=== PATIENT | female | born 1965 | race Caucasian/White ===

== ENCOUNTER 2024-02-12 08:42 | Outpatient (CLI) | payer BC, SELFPAY ==
--- NOTE | 2024-02-12 09:07 | MR_ITS ---
WS: [id number] EXAMINATION: MR hip LT wo con* [id number] ORDER DATE: 02/12/2024 9:32 AM HISTORY: Lt hip muscle strain CONTRAST: None. TECHNIQUE: Coronal STIR of the Pelvis. Coronal proton density, coronal T1, axial T2 fat sat, axial T1 , sagittal T2 fat sat, and sagittal T1 performed of the hip. FINDINGS: Gadolinium not administered. Erosive osteolytic soft tissue lesion involving the proximal LEFT femoral shaft medially measuring ap proximately 6.3 x 2.3 cm. Obvious cortical destruction of the medial femoral cortex. Extraosseous ext ension into the adjacent soft tissues. Soft tissue lesion extends into the lesser trochanter. Adjacen t surrounding edema along the medial femoral shaft. Small amount of fluid and edema extends into the adjacent neurovascular bundle. Extraosseous extension to the adjacent femoral musculature. Soft tissu e mass extends medially to involve the iliopsoas muscle and tendon. LEFT and RIGHT femoral head are n ormal in appearance. No other visualized bony lesions. Sigmoid diverticulosis. No visualized LEFT inguinal lymphadenopathy. Normal bone marrow signal in the bony pelvis and sacrum. MR/MR hip LT wo con* [id number] IMPRESSION: 1. Destructive soft tissue mass involving the LEFT proximal femur described ab ove with extraosseous soft tissue extension. Findings suspicious for metastatic disease in a patient this age. Additional considerations include primary bone neoplasm, lymphoma, and less likely osteomyelitis. 2. Recommend further evaluation with bone scan and/or PET/CT. Also consider co ntrast-enhanced CT chest abdomen and pelvis to assess for additional lesions th at are more amenable to percutaneous biopsy for tissue sampling. 3. Patient at risk for pathologic fracture of the LEFT femur. 4. Bony lesion involves the majority of the LEFT femoral shaft below the lesse r trochanter extending inferiorly approximately 6.3 cm
== END 2024-02-12 08:43 | disposition home or self-care (01) ==
PROVIDERS: PCP Family Medicine; Visit Provider Family Medicine
DX: S76.012A Strain of muscle, fascia and tendon of left hip, initial encounter (principal); X58.XXXA Exposure to other specified factors, initial encounter; M89.562 Osteolysis, left lower leg
CPT/HCPCS: 73721

== ENCOUNTER 2024-03-01 12:20 | Outpatient (CLI) | payer BC, SELFPAY ==
--- NOTE | 2024-03-01 12:24 | PETR_ITS ---
PROCEDURE INFORMATION: Exam: PET/CT Whole Body Exam date and time: 03/01/2024 1:01 PM Age: 59 years old Clinical indication: Symptoms: Lower ext mass. Destructive soft tissue mass involving the left proximal femur LABS AND CLINICAL REPORTS: Glucose: 97 mg/dl Treatment strategy for malignancy (PET staging): Initial Staging (PI) TECHNIQUE: Imaging protocol: Following at least four-hour fasting and following the injection of radiopharmaceutical, low dose CT images were obtained. Then, PET images were obtained. Attenuation corrected images were constructed using the CT scan. Fused images of PET and CT were reviewed. The standardized uptake values (SUV) reported below are maximum values within a region of interest, expressed in gm/ml. Exam includes the whole body. Radiopharmaceutical: 17.95 mCi F-18 FDG (Fluorodeoxyglucose), IV. Time of imaging post radiopharmaceutical administration: 1 hour Injection site: left AC COMPARISON: MR hip LT wo con* [id number] 02/12/2024 9:15 AM FINDINGS: Brain: Visualized brain has normal physiologic uptake. Pharynx: No abnormal uptake. Larynx: No abnormal uptake. Lungs, pleura and trachea: Calcified granuloma in the right lung. Heart: Normal physiologic uptake. Mediastinal space: No abnormal uptake. Liver: No abnormal uptake. Gallbladder and biliary ducts: No abnormal uptake. Pancreas: No abnormal uptake. Spleen: No abnormal uptake. Adrenal glands: No abnormal uptake. Kidneys and ureters: Normal physiologic uptake. Stomach and bowel: No abnormal uptake. Vasculature: No abnormal uptake. Lymph nodes: Mildly hypermetabolic 1.3 cm right supraclavicular lymph node has SUV max 2.2. Mildly hypermetabolic 1.2 cm right axillary lymph node has SUV max 1.4. Calcified mediastinal and hilar lymph nodes. Skeleton: Hypermetabolic destructive mass within the proximal left femur has SUV max 6.3. Soft tissues: Hypermetabolic 2.3 x 3.2 cm right breast mass has SUV max 4.4. PET/PET WB melanoma INITIAL [id number] IMPRESSION: 1. Hypermetabolic right breast mass with mildly hypermetabolic right axillary and right supraclavicular lymph nodes is concerning for a primary neoplasm. 2. Redemonstrated hypermetabolic destructive mass involving the proximal left femur, likely reflecting a metastasis.
== END 2024-03-01 12:21 | disposition home or self-care (01) ==
PROVIDERS: PCP Family Medicine; Visit Provider Family Medicine
DX: R22.42 Localized swelling, mass and lump, left lower limb (principal); J84.10 Pulmonary fibrosis, unspecified; I89.8 Other specified noninfective disorders of lymphatic vessels and lymph nodes; N63.10 Unspecified lump in the right breast, unspecified quadrant
CPT/HCPCS: 78816; A9552

== ENCOUNTER 2024-05-13 17:14 | Emergency (ER) | payer BC, SELFPAY ==
[2024-05-13 17:17] VITALS: BP 158/97; PULSE 89; RESP 18; TEMP 36.8; O2SAT 100; BMI 31.9
--- NOTE | 2024-05-13 17:34 | CTR_ITS ---
PROCEDURE INFORMATION: Exam: CT Head Without Contrast Exam date and time: 05/13/2024 7:17 PM Age: 59 years old Clinical indication: Altered mental status/memory loss; Patient HX: Lethargy with n/v. History of metastatic breast cancer. ; Additional info: Nausea and vomiting, likely metastatic breast cancer TECHNIQUE: Imaging protocol: Computed tomography of the head without contrast. Radiation optimization: All CT scans at this facility use at least one of these dose optimization techniques: automated exposure control; mA and/or kV adjustment per patient size (includes targeted exams where dose is matched to clinical indication); or iterative reconstruction. COMPARISON: PT PET WB melanoma INITIAL [id number] 03/01/2024 1:01 PM RADIATION DOSE METRICS: Total DLP (mGy-cm): 1019.98 FINDINGS: Brain: Normal. No hemorrhage. Unremarkable white matter. No mass effect. Cerebral ventricles: No ventriculomegaly. Paranasal sinuses: Visualized sinuses are unremarkable. No fluid levels. Mastoid air cells: Visualized mastoid air cells are well aerated. Bones: Unremarkable. No acute fracture. Soft tissues: Unremarkable. CT/CT head wo con* [id number] IMPRESSION: No acute intracranial abnormality.
--- NOTE | 2024-05-13 17:34 | CTR_ITS ---
PROCEDURE INFORMATION: Exam: CT Abdomen And Pelvis With Contrast Exam date and time: 05/13/2024 7:20 PM Age: 59 years old Clinical indication: Nausea and vomiting; Abdominal pain; Localized; Prior surgery; Surgery date: 6+ months; Surgery type: Full hysterectomy; Patient HX: C/O upper abd pain with n/v. History of breast cancer with metastatic lesion to left hip. ; Additional info: Nausea and vomiting, likely metastatic breast cancer TECHNIQUE: Imaging protocol: Computed tomography of the abdomen and pelvis with contrast. Radiation optimization: All CT scans at this facility use at least one of these dose optimization techniques: automated exposure control; mA and/or kV adjustment per patient size (includes targeted exams where dose is matched to clinical indication); or iterative reconstruction. Contrast material: OMNI 350; Contrast volume: 100 ml; Contrast route: INTRAVENOUS (IV); COMPARISON: PT PET WB melanoma INITIAL [id number] 03/01/2024 1:01 PM RADIATION DOSE METRICS: Total DLP (mGy-cm): 777.28 FINDINGS: Lungs: There are minor atelectatic changes at the lung bases. Liver: Liver is not significantly enlarged. There is mild diffuse fatty infiltration. No masses detected. Gallbladder and biliary ducts: Normal. No calcified stones. No ductal dilation. Pancreas: Unremarkable. Main pancreatic duct is not significantly dilated. Spleen: Normal. No splenomegaly. Adrenal glands: Normal. No mass. Kidneys and ureters: Small renal cortical and peripelvic cysts both kidneys likely benign otherwise kidneys are unremarkable. Stomach and bowel: Scattered diverticuli large bowel without evidence of diverticulitis. Appendix: No evidence of acute appendicitis. Intraperitoneal space: Unremarkable. No free air. No significant fluid collection. Vasculature: Unremarkable. No abdominal aortic aneurysm. Lymph nodes: Unremarkable. No enlarged lymph nodes. Urinary bladder: Unremarkabl gallbladder mildly contracted limiting assessment. Reproductive: Uterus has been removed. Bones/joints: There is an osteolytic bone lesion just below the lesser trochanter partially visualized consistent with history of bone metastasis from breast cancer. No other suspicious bone lesions appreciated. Soft tissues: Unremarkable CT/CT abdomen pelvis w con* [id number] IMPRESSION: 1. No acute findings within the abdomen or pelvis. 2. Bone metastasis left proximal femur.
--- NOTE | 2024-05-13 17:35 | ED_ITS ---
HPI - Nausea/Vomiting/Diarrhea 2 General: Chief complaint: Nausea/Vomiting/Diarrhea Stated complaint: n/v, hx cancer Time Seen by Provider: 05/13/24 17:19 Source: patient and family History of Present Illness: Patient is a nontoxic 59-year-old female who has a history of recent diagnosis of what is likely a metastatic breast cancer with left hip metastasis however has not had an actual biopsy to confirm this diagnosis and has not been able to get into any kind of treatment for this illness. She has had some nausea for quite some time however her home medication typically resolves her nausea symptoms. She has been having some increased nausea since last night that has not been resolved with home medications. She presents to the ER for evaluation of the same. She denies any current pain or discomfort. MD elicited complaint: nausea and vomiting Associated nausea: Yes Associated symtoms: Reports nausea; Denies chest pain, diaphoresis or headache(s) Related Data Home Medications Medication Instructions Recorded Confirmed cholecalciferol (vitamin D3) 25 25 mcg PO DAILY 02/25/24 02/25/24 mcg (1,000 unit) capsule cyanocobalamin (vitamin B-12) 200 mcg PO DAILY 02/25/24 02/25/24 1,000 mcg/15 mL oral liquid hydrocodone 5 mg-acetaminophen 325 1 tab PO Q6H 02/25/24 02/25/24 mg tablet melatonin 10 mg tablet 10 mg PO DAILY 02/25/24 02/25/24 Previous Rx's Medication Instructions Recorded oxycodone 15 mg tablet 15 mg PO Q4H PRN pain 30 days #180 03/07/24 tabs metoclopramide HCl 5 mg tablet 5 mg PO Q6H PRN nausea and 05/13/24 vomiting #20 tabs ondansetron 4 mg disintegrating 4 mg PO Q6H PRN Nausea And 05/13/24 tablet Vomiting #30 tabs Allergies Allergy/AdvReac Type Severity Reaction Status Date / Time morphine Allergy Severe ADV-Weaknes Verified 02/25/24 10:11 s Penicillins Allergy Severe ALGY-Hives Verified 02/25/24 10:11 Review of Systems 2 Const: Denies: fever(s), chills or diaphoresis Card: Denies: chest pain Resp: Denies: dyspnea GI: Reports: nausea and vomiting; Denies: abdominal pain Skin/Breast: Denies: rash Neuro: Denies: headache(s) PFSH ED 2 PFSH: Medical History (Updated 05/13/24 @ 21:00 by Clifton Young MD) Mild asthma Surgical History (Updated 02/26/24 @ 13:24 by Florencio Egan MD) History of hysterectomy with bilateral oophorectomy Family History (Updated 02/26/24 @ 13:27 by Florencio Egan MD) Father Kidney disease Mother Colon cancer Social History (Updated 02/26/24 @ 13:27 by Florencio Egan MD) Smoking and tobacco/nicotine status: never used tobacco/nicotine Alcohol intake: never Physical Exam 2 Const: COMMON NORMALS: no acute distress, average body habitus, alert and well nourished GENERAL APPEARANCE: cooperative ORIENTATION/CONSCIOUSNESS: Yes awake HENMT: COMMON NORMALS: normocephalic and atraumatic HEAD & SCALP: n ormocephalic and atraumatic Eye: COMMON NORMALS: conjunctivae normal CONJUNCTIVA: Yes conjunctivae normal Neck/C-Spine: GENERAL: Yes normal visual inspection Resp: COMMON NORMALS: normal respiratory effort, No retractions and No use of accessory muscles Cardio: COMMON NORMALS: regular rhythm and Peripheral pulses 2+ throughout RHYTHM: regular rhythm PERIPHERAL PULSES: Peripheral pulses 2+ throughout GI: COMMON NORMALS: Soft to palpation and non-tender PALPATION: Yes Soft to palpation Extremity: COMMON NORMALS: full ROM and no pedal edema Neuro: COMMON NORMALS: no focal motor deficits SENSORIUM/ORIENTATION: Yes alert Skin: COMMON NORMALS: no rashes or lesions noted GENERAL SKIN EXAM: no rashes or lesions noted Course 2 Vital Signs: Vital signs: Vital Signs Temperature 98.2 F 05/13/24 17:17 Pulse Rate 89 05/13/24 17:17 Respiratory Rate 16 05/13/24 19:29 Blood Pressure 136/84 05/13/24 19:29 Pulse Oximetry 100 05/13/24 17:17 Oxygen Delivery Me thod Room Air 05/13/24 18:18 MDM - Nausea/Vomiting/Diarrhea Medical Decision Making Patient is a 59-year-old female who unfortunately has recent diagnosis of right breast mass and left metastatic hip lesion concerning for metastatic breast cancer. She unfortunately had been lost to follow-up for short period of time after her oncologist had apparently retired but notes to her and she has not actually had a biopsy of this lesion or initiate any real treatment. She presents today with primary complaint of nausea and decreased appetite. She denies any abdominal pain or discomfort. She does take oxycodone for left hip pain from the metastatic lesion. She states she has sufficient pain medication at home. Basic labs were obtained, head CT was obtained, and a CT abdomen pelvis was obtained. Imaging does not show any acute intracranial or intra- abdominal processes. She does have bony metastatic disease in the left proximal femur. She was given a dose of IV Dilaudid here for pain as she did develop some left hip pain while here. Laboratory workup was unremarkable. She was updated on her lab and imaging findings. We discussed treatment options for her nausea and I will go ahead and prescribe her some Zofran and Reglan. She does take cannabinoids at home to help with appetite. She is going to follow-up with the oncology office on Thursday and was provided return precautions. Medical Records I reviewed the patient's medical records. Lab Data I reviewed the patient's lab results. 05/13/24 18:17 05/13/24 18:17 Radiology Impressions Abdomen/Pelvis CT 05/13/24 17:34 IMPRESSION: 1. No acute findings within the abdomen or pelvis. 2. Bone metastasis left proximal femur. Head CT 05/13/24 17:34 IMPRESSION: No acute intracranial abnormality. Laboratory Results WBC 12.03 10^3/uL (3.29-11.43) H 05/13/24 18:17 RBC 5.34 10^6/uL (3.85-5.65) 05/13/24 18:17 Hgb 15.00 g/dL (11.27-16.99) 05/13/24 18:17 Hct 44.7 % (36-47) 05/13/24 18:17 MCV 83.7 fl (85-98) L 05/13/24 18:17 MCH 28.1 pg (27-33) 05/13/24 18:17 MCHC 33.6 g/dL (30-55) 05/13/24 18:17 RDW 12.7 % (12.1-15.1) 05/13/24 18:17 Plt Count 335 10^3/cmm (157-399) 05/13/24 18:17 MPV 10.7 fL (7.4-10.4) H 05/13/24 18:17 Neut % (Auto) 74.9 % 05/13/24 18:17 Lymph % (Auto) 20.7 % 05/13/24 18:17 [place] % (Auto) 3.8 % 05/13/24 18:17 Eos % (Auto) 0.1 % 05/13/24 18:17 Baso % (Auto) 0.2 % 05/13/24 18:17 Neut # (Auto) 9.00 10^3/uL (1.8-7.7) H 05/13/24 18:17 Lymph # (Auto) 2.5 10^3/uL (0.8-4.8) 05/13/24 18:17 [place] # (Auto) 0.5 10^3/uL (0.2-0.9) 05/13/24 18:17 Eos # (Auto) 0.0 10^3/uL (0.0-0.8) 05/13/24 18:17 Baso # (Auto) 0.0 10^3/uL (0.0-0.1) 05/13/24 18:17 Nucleated RBC % (auto) 0 % 05/13/24 18:17 Nucleated RBCs # 0.0 /100WBC 05/13/24 18:17 Sodium 138 mmol/L (136-145) 05/13/24 18:17 Potassium 3.5 mmol/L (3.5-5.1) 05/13/24 18:17 Chloride 100 mmol/L (98-107) 05/13/24 18:17 Carbon Dioxide 21 mmol/L (22-29) L 05/13/24 18:17 Anion Gap 20.5 (5-19) H 05/13/24 18:17 BUN 6 mg/dL (6-20) 05/13/24 18:17 Creatinine 0.5 mg/dL (0.5-0.9) 05/13/24 18:17 GFR Calculation 126.7 mL/min (90-130) 05/13/24 18:17 Glucose 109 mg/dL (65-115) 05/13/24 18:17 Calculated Osmolality 284 mOsm/kg (285-295) L 05/13/24 18:17 Calcium 10.0 mg/dL (8.5-10.5) 05/13/24 18:17 Magnesium 1.6 mg/dL (1.7-2.3) L 05/13/24 18:17 Total Bilirubin 0.9 mg/dL (0.15-1.2) 05/13/24 18:17 AST 14 U/L (0-32) 05/13/24 18:17 ALT 14 U/L (0-33) 05/13/24 18:17 Alkaline Phosphatase 65 U/L (35-105) 05/13/24 18:17 Total Protein 7.8 g/dL (6.6-8.7) 05/13/24 18:17 Albumin 4.7 g/dL (3.5-5.2) 05/13/24 18:17 Globulin 3.1 g/dL (1.3-4.6) 05/13/24 18:17 Lipase 28 U/L (13-60) 05/13/24 18:17 All radiology interpretation(s) finalized by discharge Discharge Plan Discharge Patient Disposition: Home Clinical Impression: Breast mass, right, Secondary malignant neoplasm of bone, Nausea & vomiting Condition: Stable Prescriptions: New ondansetron 4 mg tablet,disintegrating 4 mg PO Q6H PRN (Reason: Nausea And Vomiting) Qty: 30 0RF metoclopramide HCl 5 mg tablet 5 mg PO Q6H PRN (Reason: nausea and vomiting) Qty: 20 0RF No Action hydrocodone-acetaminophen 5-325 mg tablet 1 tab PO Q6H cyanocobalamin (vitamin B-12) 1,000 mcg/15 mL liquid 200 mcg PO DAILY cholecalciferol (vitamin D3) 25 mcg (1,000 unit) capsule 25 mcg PO DAILY melatonin 10 mg tablet 10 mg PO DAILY oxycodone 15 mg tablet 15 mg PO Q4H PRN (Reason: pain) 30 Days Qty: 180 0RF Discharge Orders: Discharge ED (Routine); Ordered 05/13/24 Ordered By: Clifton Young Referrals: Florentin Sosa MD [Primary Care Provider] - Discharge Diet: Advance as tolerated Discharge Activity: Resume usual activity Patient Instructions: Opioid Safety, Pain Management Activity Restrictions/Additional Instructions: Take medication as directed. Take MiraLAX as discussed once daily to help with any constipation. Hold for loose stools. Follow-up with your PCP and oncologist next week to discuss continued workup and treatment of what is presumed to be breast cancer. Return to the ER for any new or worsening symptoms or any other concerns at all. Coding Level of Care Code ED [employer] for [employer]
[2024-05-13] MEDS: sodium chloride 0.9% 1,000 ML 999 ML IV (17:57)
[2024-05-13] MEDS: diphenhydrAMINE 50 mg/mL SDV 1mL 25 MG IVP (17:57)
[2024-05-13] MEDS: prochlorperazine 10 mg/2 mL Inj IVP (17:57)
[2024-05-13 18:20] LABS: Basophils % 0.2 %; Eosinophils % 0.1 %; Hematocrit 44.7 % (36-47); Lymphocytes # 2.5 10^3/uL (0.8-4.8); Lymphocytes % 20.7 %; Mean Corpuscular HGB Conc 33.6 g/dL (30-55); Mean Corpuscular Hemoglobin 28.1 pg (27-33); Mean Corpuscular Volume 83.7 fl (85-98); Mean Platelet Volume 10.7 fL (7.4-10.4); Monocytes # 0.5 10^3/uL (0.2-0.9); Monocytes % 3.8 %; Neutrophils % 74.9 %; Nucleated Red Blood Cells % 0 %; Platelet Count 335 10^3/cmm (157-399); Red Blood Count 5.34 10^6/uL (3.85-5.65); Red Cell Distribution Width 12.7 % (12.1-15.1); White Blood Count 12.03 10^3/uL (3.29-11.43)
--- NOTE | 2024-05-13 18:25 | PC.NURSE ---
patient is not a stroke alert-not indicated
[2024-05-13 18:36] LABS: Alanine Aminotransferase 14 U/L (0-33); Albumin Level 4.7 g/dL (3.5-5.2); Alkaline Phosphatase 65 U/L (35-105); Anion Gap 20.5 (5-19); Aspartate Amino Transferase 14 U/L (0-32); Blood Urea Nitrogen 6 mg/dL (6-20); Carbon Dioxide 21 mmol/L (22-29); Chloride 100 mmol/L (98-107); Creatinine Clr Calc Pharmacy 138.4405; Globulin 3.1 g/dL (1.3-4.6); Glomerular Filtration Rate 126.7 mL/min (90-130); Glucose 109 mg/dL (65-115); Lipase 28 U/L (13-60); Magnesium 1.6 mg/dL (1.7-2.3); Osmolality Calculated 284 mOsm/kg (285-295); Potassium 3.5 mmol/L (3.5-5.1); Sodium 138 mmol/L (136-145); Total Bilirubin 0.9 mg/dL (0.15-1.2); Total Protein 7.8 g/dL (6.6-8.7)
[2024-05-13] MEDS: HYDROmorphone 1 mg/mL INJ 1 mL IVP (18:59)
[2024-05-13] MEDS: iohexol 350 mg/mL 500 mL Btl (per mL) IV (19:20)
[2024-05-13 19:29] VITALS: BP 136/84; RESP 16
[2024-05-13 21:03] VITALS: RESP 16
[2024-05-13 21:04] VITALS: PULSE 79; O2SAT 98
== END 2024-05-13 21:09 | disposition home or self-care (01) ==
PROVIDERS: Emergency Provider Student in an Organized Health Care Education/Training Program; PCP Family Medicine
DX: R11.2 Nausea with vomiting, unspecified (principal); N63.10 Unspecified lump in the right breast, unspecified quadrant; C79.51 Secondary malignant neoplasm of bone
CPT/HCPCS: 70450; 74177; 80053; 83690; 83735; 85025; 96374; 96375; 99285; J0780; J1170; J1200; J7030

== ENCOUNTER 2024-06-09 12:21 | Outpatient (CLI) | payer BC, SELFPAY ==
--- NOTE | 2024-06-09 12:29 | MM_ITS ---
WS: [id number] BILATERAL 3D TOMOSYNTHESIS DIGITAL DIAGNOSTIC MAMMOGRAPHY WITH CAD CLINICAL INFORMATION: MASS/LUMP L LOWER LIMB HISTORY: RIGHT breast lumps COMPARISON: None. TECHNIQUE: Bilateral CC, MLO, and ML views. Technically difficult examination performed in wheelchair FINDINGS: The breasts are composed of heterogeneous fibroglandular density, which can limit the detection of sm all underlying mass lesions. Partially visualized ovoid lesions along the chest wall RIGHT breast. Ex am is difficult due to performed in wheelchair. Ovoid mass along the deep posterior RIGHT breast in the chest wall near the axillary tail measuring 1 .7 x 1.8 cm. This corresponds to the first palpable lesion. Additional masslike lesion with diffuse suspicious pleomorphic calcifications. Ovoid masslike lesion near the chest wall 9 o'clock position partially visualized measuring at least 2.7 x 1.6 cm. This cor responds to the second palpable lesion. Ultrasound described below. Pleomorphic calcifications extend anterior from the 6:00 breast mass suspicious for surrounding paren chymal invasion Axillary lymphadenopathy. ULTRASOUND BREAST RIGHT TECHNIQUE: Ultrasound right breast focused area of concern. CLINICAL INFORMATION: MASS/LUMP L LOWER LIMB FINDINGS: Ultrasound RIGHT breast. Ultrasound first palpable mass near the axillary tail posteriorly demonstrates a hypoechoic mass or l ymph node with central echogenicity which may present compressed fatty hilum in a pathologic lymph no de. This measures approximately 2.0 x 1.7 x 1.2 cm. The second palpable mass at the 9 o'clock position 5 cm from the nipple demonstrates markedly irregul ar hypoechoic shadowing mass highly suspicious for neoplasm measuring 3.2 x 2.6 x 2.2 cm. Ultrasound RIGHT axilla demonstrates multiple abnormal appearing lymph nodes RIGHT axilla with replac ement of the normal fatty hilum and cortical thickening. The largest measures approximately 1.2 x 0.7 x 0.9 cm. MM/MM diag BI tomosynthesis [id number] IMPRESSION: DENSITY: The breasts are heterogeneously dense, which may obscure small masses. BI-RADS: 5 - Highly suggestive of Malignancy FOLLOW UP: US Guided Biopsy Recommended Recommend ultrasound-guided biopsy of the 2 RIGHT breast lesions as well as the RIGHT axillary lymphadenopathy Note suspicious pleomorphic calcifications extend anteriorly from the 9:[address] mass suspicious for surrounding parenchymal invasion some in a ductal distri bution.
== END 2024-06-09 12:22 | disposition home or self-care (01) ==
LOC: RAD 12:22
PROVIDERS: PCP Family Medicine; Visit Provider Family Medicine
DX: N63.12 Unspecified lump in the right breast, upper inner quadrant (principal); N63.31 Unspecified lump in axillary tail of the right breast; R92.333 Mammographic heterogeneous density, bilateral breasts
CPT/HCPCS: 76642; 77062; G0279

== ENCOUNTER 2024-07-06 13:28 | Outpatient (CLI) | payer BC, SELFPAY ==
--- NOTE | 2024-07-06 13:42 | US_ITS ---
WS: [id number] ULTRASOUND-GUIDED RIGHT BREAST BIOPSY CLINICAL INFORMATION: RIGHT BREAST MASS FINDINGS: The procedure including risks, benefits, and complications were discussed with the patient who agreed to proceed. Using sterile technique patient was prepped and draped in the usual sterile fashion. Aft er 1% lidocaine utilizing real-time ultrasound guidance 5 14-gauge cores were obtained of the RIGHT b reast lesion at the 9 o'clock position 5 cm from the nipple. Subsequently a titanium clip was placed in the biopsy cavity. No immediate complications. Next the mass along the RIGHT axillary tail was localized with 5 core biopsies obtained. Titanium cli p was placed at the biopsy cavity. Next the largest axillary lymph node was localized with 4 core biopsies obtained. Clip was placed in the biopsy cavity. Pathology demonstrates : RIGHT BREAST 9 O'CLOCK POSITION: Moderately to poorly differentiated invasive mammary carcinoma with mixed ductal and lobular features , intermediate to unfavorable nuclear grade 2-3/3 Associated background ductal carcinoma in situ Tumor necrosis is present RIGHT AXILLARY TAIL CORE MASS BIOPSY: Moderately to poorly differentiated invasive mammary carcinoma No definitive lymph node tissue is identified RIGHT AXILLA NEEDLE CORE BIOPSY: Metastatic breast carcinoma Focal background lymph node tissue is identified US/[place] [id number] IMPRESSION: 1. Uncomplicated ultrasound-guided RIGHT breast biopsy. 2. Additional biopsies of the RIGHT axillary tail mass and enlarged RIGHT axil yesi lymph node. 3. The pathology demonstrates all 3 specimens are positive for malignancy. 4. The RIGHT breast 9:00 lesion and axillary tail mass demonstrate invasive ma mmary carcinoma. 5. 9:00 sample also shows background DCIS. 6. No associated lymph tissue in the axillary tail mass. This may represent di rect extension or multifocal carcinoma involvement 7. Metastatic carcinoma is demonstrated in the RIGHT axillary lymph node sampl e. This is compatible with lymph node metastasis. 8. Breast cancer prognostic profile reported separately by pathology DENSITY: The breasts are heterogeneously dense, which may obscure small masses. BI-RADS: 6 - Known Biopsy - Proven Malignancy FOLLOW UP: Surgical Biopsy Recommended RECOMMEND BREAST SURGERY CONSULTATION.
--- NOTE | 2024-07-06 15:45 | US_ITS ---
WS: [id number] ULTRASOUND-GUIDED RIGHT BREAST BIOPSY CLINICAL INFORMATION: RIGHT BREAST MASS FINDINGS: The procedure including risks, benefits, and complications were discussed with the patient who agreed to proceed. Using sterile technique patient was prepped and draped in the usual sterile fashion. Aft er 1% lidocaine utilizing real-time ultrasound guidance 5 14-gauge cores were obtained of the RIGHT b reast lesion at the 9 o'clock position 5 cm from the nipple. Subsequently a titanium clip was placed in the biopsy cavity. No immediate complications. Next the mass along the RIGHT axillary tail was localized with 5 core biopsies obtained. Titanium cli p was placed at the biopsy cavity. Next the largest axillary lymph node was localized with 4 core biopsies obtained. Clip was placed in the biopsy cavity. Pathology demonstrates : RIGHT BREAST 9 O'CLOCK POSITION: Moderately to poorly differentiated invasive mammary carcinoma with mixed ductal and lobular features , intermediate to unfavorable nuclear grade 2-3/3 Associated background ductal carcinoma in situ Tumor necrosis is present RIGHT AXILLARY TAIL CORE MASS BIOPSY: Moderately to poorly differentiated invasive mammary carcinoma No definitive lymph node tissue is identified RIGHT AXILLA NEEDLE CORE BIOPSY: Metastatic breast carcinoma Focal background lymph node tissue is identified US/[place] [id number] IMPRESSION: 1. Uncomplicated ultrasound-guided RIGHT breast biopsy. 2. Additional biopsies of the RIGHT axillary tail mass and enlarged RIGHT axil yesi lymph node. 3. The pathology demonstrates all 3 specimens are positive for malignancy. 4. The RIGHT breast 9:00 lesion and axillary tail mass demonstrate invasive ma mmary carcinoma. 5. 9:00 sample also shows background DCIS. 6. No associated lymph tissue in the axillary tail mass. This may represent di rect extension or multifocal carcinoma involvement 7. Metastatic carcinoma is demonstrated in the RIGHT axillary lymph node sampl e. This is compatible with lymph node metastasis. 8. Breast cancer prognostic profile reported separately by pathology DENSITY: The breasts are heterogeneously dense, which may obscure small masses. BI-RADS: 6 - Known Biopsy - Proven Malignancy FOLLOW UP: Surgical Biopsy Recommended RECOMMEND BREAST SURGERY CONSULTATION.
[2024-07-12 09:30] LABS: Breast Profile ER,PR,HER2,Ki-6 See Report
[2024-07-12 09:33] LABS: Breast Profile ER,PR,HER2,Ki-6 See Report
[2024-07-12 09:35] LABS: Breast Profile ER,PR,HER2,Ki-6 See Report
== END 2024-07-06 13:29 | disposition home or self-care (01) ==
LOC: RAD 13:29
PROVIDERS: PCP Family Medicine; Visit Provider Family Medicine
DX: D05.11 Intraductal carcinoma in situ of right breast (principal)
CPT/HCPCS: 19083; 19084; 88305; 88309; 88361; 88374

== ENCOUNTER 2024-08-09 15:21 | Oncology outpatient (recurring) (ONCR) | payer BC, SELFPAY ==
--- NOTE | 2024-07-21 15:28 | N.ONRAD NP_ITS ---
Radiation Oncology New Patient Visit Patient: Elissa Sr MR#: [id number] : 1965 Age: 59 Sex: Female Dictated by: Dr. Monalisa Martinez Date of Service: 07/21/2024 Referring Physician(s) : Diagnosis: C79.51 - secondary malignant neoplasm of bone, Diagnosed 07/20/2024 (active). Radiotherapy to date: Summary > No prior radiation therapy. Chief Complaint / History of Present Illness: Patient is a 59-year-old lady who originally began to have pain in her left leg in November. She was finally brought to medical attention in February. She was scheduled for biopsies at that point in time but she did not get these done. It is unclear whether she let this fall through the cracks herself or if the clinic did itself. She most recently on July 06 had a biopsy of the mass in her breast which was infiltrating lobular carcinoma ER positive [place] negative H ER 2 positive. On her PET scan she was found to have the mass in the breast, a supraclavicular mass and the erosive lesion in the left femur. She was seen by medical oncology here and sent to the emergency room in [place] secondary to the risk of impending fracture. A week ago she had a zackery placed in the area stabilized. She is here today to discuss postop radiation to the femur. Current Medications: cholecalciferol (vitamin D3) 25 mcg PO DAILY cyanocobalamin (vitamin B-12) 200 mcg PO DAILY hydrocodone-acetaminophen 5-325 mg 1 tab PO Q6H melatonin 10 mg PO DAILY Allergies: morphine Allergy (Severe, Verified 02/25/24 10:11) ADV-Weakness Penicillins Allergy (Severe, Verified 02/25/24 10:11) ALGY-Hives Medical History: No history of collagen vascular disease. No previous radiation therapy. Mild asthma Surgical History: History of hysterectomy with bilateral oophorectomy Family History: Father Kidney disease Mother Colon cancer Social History: Smoking and tobacco/nicotine status: never used tobacco/nicotine Alcohol intake: never Current Complaints / Review of Systems: . Vital Signs: Performed on 07/21/2024 9:44 AM BMI - 30.893 kg/m2 (high), Height - 66 in, Weight - 191.4 lbs, Temperature - 97.9 f, Pulse - 70 /min, Respiration - 16 /min, O2 Sat - 99 %, Pain - 3, Fatigue - 0 and BP - 124/ 67 mm(hg). Physical Exam: General Patient is sitting comfortably in the wheelchair. She is companied by her . HEENT: Normocephalic atraumatic. Pupils are equal, sclera clear, extraocular muscles intact Pulmonary: Respiratory rate is regular nonlabored Cardiovascular: Regular rate and rhythm Abdomen: Moderate mildly protuberant and and android pattern Extremities: The incisions on the left thigh appear to be healing nicely. She has quite a bit of ecchymoses but the swelling appears to have gone down quite a bit. Neurological: Alert and orient x 3. Speech intact. She was able to stand for her weight today Psych: Affect appropriate for current situation Performance Status: 80 Pathology: Primary, c79.51 - secondary malignant neoplasm of bone, Diagnosed 07/20/2024 (active) . Lab: Imaging: See HPI Impression: Stage IV breast cancer Plan: I reviewed with her at this point the symptoms that she has had since November. We talked about the recent surgery and how this stabilize the bone. She still having pain at a 3-4 out of 10. We reviewed the simulation process. We discussed the daily treatment regiment. We reviewed the risks and side effects both acute and long-term. We discussed how the radiation would help kill off the cancer in that area and decrease her pain. At this point she is agreed to proceed. She will undergo simulation today and begin her treatments next week pending insurance approval. Plan for a 2-week course of treatment Signed by: 07/21/2024 3:27:25 PM <<Signature on File>> Time spent with patient:35 CPT Code: CPT Code:
--- NOTE | 2024-08-01 09:03 | ONCRAD TMN_ITS ---
Radiation Oncology Weekly Treatment Management Patient: Elissa Sr MR#: [id number] : 1965 Attending Physician: Dr. Monalisa Martinez Date of Service: 07/28/2024 Fractions: 2 out of 10 Referring Physician(s) : Diagnosis: C79.51 - Secondary malignant neoplasm of bone, Diagnosed 07/20/2024 (Active) Radiotherapy to date: Course: L femur, Treatment Site: Lt Femur 30Gy, Ref. ID: [id number], Energy: 15X, Dose/Fx (cGy): 300, #Fx: 3 / 10, Dose Correction (cGy): 0, Total Dose Delivered (cGy): 900, Start Date: 07/26/2024, Elapsed Days: 2 Reason for visit: The patient is being seen today as part of their regularly scheduled weekly on treatment visits to assess for acute toxicities from radiotherapy. Review of Systems: No changes reported Vital Signs: Performed on 07/28/2024 3:48 PM BMI - 30.409 kg/m2 (high), Height - 66 in, Weight - 188.4 lbs, Temperature - 99 f, Pulse - 65 /min, Respiration - 18 /min, O2 Sat - 98 %, Pain - 3, Fatigue - 0 and BP - 119/ 75 mm(hg). Physical Exam: No changes on exam Imaging: Radiation therapy imaging related to accurate target localization (i.e. KV, MV and CBCT) was reviewed. Appropriate changes, if any, were made to ensure treatment accuracy. Plan: Will continue with her treatments as planned Signed by: Dr. Monalisa Martinez 08/01/2024 9:02:13 AM
--- NOTE | 2024-08-02 09:29 | ONCRAD TMN_ITS ---
Radiation Oncology Weekly Treatment Management Patient: Elissa Sr MR#: [id number] : 1965 Attending Physician: Dr. Monalisa Martinez Date of Service: 08/02/2024 Fractions: 6 out of 10 Referring Physician(s) : Diagnosis: C79.51 - Secondary malignant neoplasm of bone, Diagnosed 07/20/2024 (Active) Radiotherapy to date: Course: L femur, Treatment Site: Lt Femur 30Gy, Ref. ID: [id number], Energy: 15X, Dose/Fx (cGy): 300, #Fx: 6 / 10, Dose Correction (cGy): 0, Total Dose Delivered (cGy): 1,800, Start Date: 07/26/2024, Elapsed Days: 7 Reason for visit: The patient is being seen today as part of their regularly scheduled weekly on treatment visits to assess for acute toxicities from radiotherapy. Review of Systems: Patient has noticed no additional effects from her fall in the parking lot yesterday. She had questions about infusion services and I asked her to check with them on Vital Signs: Performed on 08/02/2024 8:58 AM BMI - 30.344 kg/m2 (high), Height - 66 in, Weight - 188 lbs, Temperature - 97.8 f, Pulse - 61 /min, Respiration - 18 /min, O2 Sat - 96 %, Pain - 2, Fatigue - 0 and BP - 102/ 63 mm(hg)(/low). Physical Exam: No changes on exam Imaging: Radiation therapy imaging related to accurate target localization (i.e. KV, MV and CBCT) was reviewed. Appropriate changes, if any, were made to ensure treatment accuracy. Plan: Will continue with treatments as planned Signed by: Dr. Monalisa Martinez 08/02/2024 9:28:18 AM
[2024-08-08 09:17] LABS: Basophils # 0.1 10^3/uL (0.0-0.1); Basophils % 0.7 %; Eosinophils # 0.1 10^3/uL (0.0-0.8); Hematocrit 38.7 % (36-47); Lymphocytes # 1.4 10^3/uL (0.8-4.8); Lymphocytes % 16.9 %; Mean Corpuscular Hemoglobin 28.6 pg (27-33); Mean Corpuscular Volume 89.4 fl (85-98); Mean Platelet Volume 10.6 fL (7.4-10.4); Monocytes # 0.4 10^3/uL (0.2-0.9); Neutrophils # 6.39 10^3/uL (1.8-7.7); Neutrophils % 76.2 %; Nucleated Red Blood Cells % 0 %; Platelet Count 284 10^3/cmm (157-399); Red Blood Count 4.33 10^6/uL (3.85-5.65); Red Cell Distribution Width 13.2 % (12.1-15.1); White Blood Count 8.39 10^3/uL (3.29-11.43)
[2024-08-08 09:36] LABS: Alanine Aminotransferase 44 U/L (0-33); Albumin Level 4.1 g/dL (3.5-5.2); Alkaline Phosphatase 70 U/L (35-105); Aspartate Amino Transferase 25 U/L (0-32); Blood Urea Nitrogen 8 mg/dL (6-20); Calcium 9.2 mg/dL (8.5-10.5); Carbon Dioxide 26 mmol/L (22-29); Chloride 100 mmol/L (98-107); Globulin 2.4 g/dL (1.3-4.6); Glomerular Filtration Rate 102.7 mL/min (90-130); Glucose 116 mg/dL (65-115); Osmolality Calculated 283 mOsm/kg (285-295); Sodium 137 mmol/L (136-145); Total Bilirubin 0.6 mg/dL (0.15-1.2); Total Protein 6.5 g/dL (6.6-8.7)
== END 2024-08-09 23:59 | disposition home or self-care (01) ==
PROVIDERS: Internal Medicine Medical Oncology; PCP Family Medicine; Visit Provider Radiology Radiation Oncology
DX: C79.51 Secondary malignant neoplasm of bone; Z51.0 Encounter for antineoplastic radiation therapy; C50.911 Malignant neoplasm of unspecified site of right female breast
CPT/HCPCS: 36415; 77290; 77295; 77300; 77334; 77336; 77387; 77412; 80053; 85025

== ENCOUNTER 2024-09-06 14:09 | Oncology outpatient (recurring) (ONCR) | payer BC, SELFPAY ==
[2024-08-29 09:05] LABS: Basophils # 0.1 10^3/uL (0.0-0.1); Basophils % 0.6 %; Eosinophils # 0.1 10^3/uL (0.0-0.8); Eosinophils % 0.6 %; Hematocrit 42.4 % (36-47); Lymphocytes # 1.2 10^3/uL (0.8-4.8); Lymphocytes % 14.9 %; Mean Corpuscular HGB Conc 32.5 g/dL (30-55); Mean Corpuscular Hemoglobin 28.4 pg (27-33); Mean Corpuscular Volume 87.2 fl (85-98); Mean Platelet Volume 10.4 fL (7.4-10.4); Monocytes # 0.4 10^3/uL (0.2-0.9); Neutrophils # 6.55 10^3/uL (1.8-7.7); Neutrophils % 78.8 %; Nucleated Red Blood Cells % 0 %; Platelet Count 306 10^3/cmm (157-399); Red Blood Count 4.86 10^6/uL (3.85-5.65); Red Cell Distribution Width 13.2 % (12.1-15.1); White Blood Count 8.32 10^3/uL (3.29-11.43)
[2024-08-29 10:14] LABS: Alanine Aminotransferase 13 U/L (0-33); Albumin Level 4.4 g/dL (3.5-5.2); Alkaline Phosphatase 66 U/L (35-105); Anion Gap 18.6 (5-19); Aspartate Amino Transferase 15 U/L (0-32); Blood Urea Nitrogen 7 mg/dL (6-20); Calcium 9.9 mg/dL (8.5-10.5); Carbon Dioxide 23 mmol/L (22-29); Chloride 100 mmol/L (98-107); Creatinine Clr Calc Pharmacy 109.5858; Globulin 2.6 g/dL (1.3-4.6); Glomerular Filtration Rate 102.7 mL/min (90-130); Glucose 132 mg/dL (65-115); Osmolality Calculated 286 mOsm/kg (285-295); Potassium 3.6 mmol/L (3.5-5.1); Sodium 138 mmol/L (136-145); Total Bilirubin 0.9 mg/dL (0.15-1.2)
--- NOTE | 2024-09-06 14:32 | ONCRAD EPV_ITS ---
Radiation Oncology Established Patient Visit Patient: Elissa Sr [id number] : 1965> Age: 59> Sex: Female> Dictated by: Dr. Monalisa Martinez Date of Service: 09/06/2024 Referring Physician(s) : Diagnosis: C79.51 - Secondary malignant neoplasm of bone, Diagnosed 07/20/2024 (Active) Radiotherapy to Date: Course: L femur, Treatment Site: Lt Femur 30Gy, Ref. ID: [id number], Energy: 15X, Dose/Fx (cGy): 300, #Fx: , Dose Correction (cGy): 0, Total Dose Delivered (cGy): 3,000, Start Date: 07/26/2024, End Date: 08/09/2024 , Days: 14 Current History: Patient returns today about a month from completion of treatment to the femur that she had surgically pinned prior to the postop radiation. Subjectively she is having a good day. She says her energy is a little bit better than it has been. Her hot flashes are improving. She has not developed any new aches or pains. She still using her walker as her balance is off more than the actual problem with walking on the leg. Current Medications: Allergies: Current Complaints / Review of Systems: . Vital Signs: Performed on 09/06/2024 2:20 PM BMI - 27.6 kg/m2 (high), Height - 66 in, Weight - 171 lbs, Temperature - 98.7 f, Pulse - 109 /min (high), Respiration - 17 /min, O2 Sat - 96 %, Pain - 1, Fatigue - 0 and BP - 130/ 84 mm(hg). Physical Exam: General: Alert and oriented x 3. No acute distress. HEENT normocephalic atraumatic. Pupils are equal, sclera clear, extraocular muscles intact. LUNGS respiratory is regular nonlabored. HEART: Regular rate and rhythm. Performance Status: 80 Lab: None pending. Pathology: Primary, c79.51 - secondary malignant neoplasm of bone, Diagnosed 07/20/2024 (active) . Imaging: See HPI Impression: Stage IV breast cancer Plan: At this time she is doing well. She is recovered from her radiation treatments. She will be following up in medical oncology. Will see her back on as-needed basis. Signed by: 09/06/2024 2:31:31 PM <<Signature on File>> Time spent with patient: 15 CPT Code: CPT Code:
== END 2024-09-09 23:59 | disposition home or self-care (01) ==
PROVIDERS: Internal Medicine Medical Oncology; PCP Family Medicine; Visit Provider Radiology Radiation Oncology
DX: Z53.9 Procedure and treatment not carried out, unspecified reason (principal)
CPT/HCPCS: 36415; 77336; 80053; 85025

== ENCOUNTER 2024-10-03 12:45 | Oncology outpatient (recurring) (ONCR) | payer BC, SELFPAY ==
[2024-09-12 09:28] LABS: Alanine Aminotransferase 13 U/L (0-33); Albumin Level 4.4 g/dL (3.5-5.2); Alkaline Phosphatase 69 U/L (35-105); Anion Gap 13.3 (5-19); Aspartate Amino Transferase 20 U/L (0-32); Blood Urea Nitrogen 11 mg/dL (6-20); CA 15-3 14.6 U/mL (0-25); Calcium 10.2 mg/dL (8.5-10.5); Carbon Dioxide 30 mmol/L (22-29); Chloride 100 mmol/L (98-107); Creatinine Clr Calc Pharmacy 91.8607; Globulin 2.9 g/dL (1.3-4.6); Glomerular Filtration Rate 85.9 mL/min (90-130); Glucose 123 mg/dL (65-115); Osmolality Calculated 289 mOsm/kg (285-295); Potassium 4.3 mmol/L (3.5-5.1); Sodium 139 mmol/L (136-145); Total Bilirubin 0.8 mg/dL (0.15-1.2); Total Protein 7.3 g/dL (6.6-8.7)
[2024-09-12 09:55] LABS: Basophils % 1.1 %; Eosinophils % 1.1 %; Hematocrit 39.8 % (36-47); Lymphocytes # 1.1 10^3/uL (0.8-4.8); Lymphocytes % 31.7 %; Mean Corpuscular HGB Conc 33.2 g/dL (30-55); Mean Corpuscular Hemoglobin 29.3 pg (27-33); Mean Corpuscular Volume 88.4 fl (85-98); Monocytes # 0.1 10^3/uL (0.2-0.9); Monocytes % 3.4 %; Neutrophils % 62.4 %; Nucleated Red Blood Cells % 0 %; Platelet Count 243 10^3/cmm (157-399); Red Cell Distribution Width 13.1 % (12.1-15.1); White Blood Count 3.53 10^3/uL (3.29-11.43)
[2024-09-12 10:10] LABS: Slide Review Slide Review Perform
[2024-09-12] MEDS: sodium chloride 0.9% 500 ML 999 ML IV (10:56)
[2024-09-19 08:48] LABS: Basophils % 1.2 %; Eosinophils % 1.2 %; Hematocrit 41.2 % (36-47); Lymphocytes # 1.2 10^3/uL (0.8-4.8); Lymphocytes % 48.4 %; Mean Corpuscular HGB Conc 32.5 g/dL (30-55); Mean Corpuscular Volume 89.2 fl (85-98); Mean Platelet Volume 9.6 fL (7.4-10.4); Monocytes # 0.1 10^3/uL (0.2-0.9); Monocytes % 2.8 %; Neutrophils # 1.18 10^3/uL (1.8-7.7); Neutrophils % 46.4 %; Nucleated Red Blood Cells % 0 %; Platelet Count 151 10^3/cmm (157-399); Red Blood Count 4.62 10^6/uL (3.85-5.65); Red Cell Distribution Width 13.2 % (12.1-15.1); White Blood Count 2.54 10^3/uL (3.29-11.43)
[2024-09-19 09:17] LABS: Alanine Aminotransferase 10 U/L (0-33); Albumin Level 4.4 g/dL (3.5-5.2); Alkaline Phosphatase 72 U/L (35-105); Anion Gap 14.5 (5-19); Aspartate Amino Transferase 12 U/L (0-32); Blood Urea Nitrogen 12 mg/dL (6-20); CA 15-3 15.9 U/mL (0-25); Calcium 9.7 mg/dL (8.5-10.5); Carbon Dioxide 28 mmol/L (22-29); Chloride 102 mmol/L (98-107); Creatinine Clr Calc Pharmacy 92.8642; Globulin 2.8 g/dL (1.3-4.6); Glomerular Filtration Rate 85.9 mL/min (90-130); Glucose 100 mg/dL (65-115); Osmolality Calculated 290 mOsm/kg (285-295); Potassium 4.5 mmol/L (3.5-5.1); Sodium 140 mmol/L (136-145); Total Bilirubin 0.4 mg/dL (0.15-1.2); Total Protein 7.2 g/dL (6.6-8.7)
[2024-09-19 09:33] LABS: Slide Review Slide Review Perform
[2024-09-19] MEDS: sodium chloride 0.9% 1,000 ML 999 ML IV (09:58)
[2024-09-19 11:12] VITALS: BP 128/76; PULSE 82; RESP 16; TEMP 530; TEMP 986; O2SAT 98
[2024-10-03 12:50] LABS: Basophils # 0.1 10^3/uL (0.0-0.1); Basophils % 1.5 %; Eosinophils % 0.7 %; Hematocrit 38.3 % (36-47); Lymphocytes # 1.5 10^3/uL (0.8-4.8); Lymphocytes % 33.3 %; Mean Corpuscular HGB Conc 32.9 g/dL (30-55); Mean Corpuscular Hemoglobin 29.2 pg (27-33); Mean Corpuscular Volume 88.9 fl (85-98); Mean Platelet Volume 9.2 fL (7.4-10.4); Monocytes # 0.1 10^3/uL (0.2-0.9); Monocytes % 3.1 %; Neutrophils # 2.77 10^3/uL (1.8-7.7); Neutrophils % 61.2 %; Nucleated Red Blood Cells % 0 %; Platelet Count 443 10^3/cmm (157-399); Red Blood Count 4.31 10^6/uL (3.85-5.65); Red Cell Distribution Width 15.5 % (12.1-15.1); White Blood Count 4.53 10^3/uL (3.29-11.43)
[2024-10-03 13:18] LABS: Alanine Aminotransferase 11 U/L (0-33); Albumin Level 4.4 g/dL (3.5-5.2); Alkaline Phosphatase 69 U/L (35-105); Anion Gap 14.6 (5-19); Aspartate Amino Transferase 14 U/L (0-32); Blood Urea Nitrogen 11 mg/dL (6-20); CA 15-3 19.7 U/mL (0-25); Calcium 9.8 mg/dL (8.5-10.5); Carbon Dioxide 29 mmol/L (22-29); Chloride 102 mmol/L (98-107); Creatinine Clr Calc Pharmacy 72.0324; Globulin 2.6 g/dL (1.3-4.6); Glomerular Filtration Rate 64.3 mL/min (90-130); Glucose 121 mg/dL (65-115); Osmolality Calculated 293 mOsm/kg (285-295); Potassium 4.6 mmol/L (3.5-5.1); Sodium 141 mmol/L (136-145); Total Bilirubin 0.6 mg/dL (0.15-1.2)
[2024-10-03 13:32] LABS: Slide Review Slide Review Perform
[2024-10-03] MEDS: denosumab 120 mg SDV SUBCUT (14:24)
== END 2024-10-07 23:59 | disposition home or self-care (01) ==
PROVIDERS: Internal Medicine Medical Oncology; Nurse Practitioner Family; PCP Family Medicine; Visit Provider Radiology Radiation Oncology
DX: Z53.9 Procedure and treatment not carried out, unspecified reason; C50.911 Malignant neoplasm of unspecified site of right female breast; C79.51 Secondary malignant neoplasm of bone; Z79.899 Other long term (current) drug therapy
CPT/HCPCS: 36415; 36591; 80053; 85025; 86300; 96360; 96361; 96402; J0897; J7030; J7040

== ENCOUNTER 2024-11-04 08:00 | Oncology outpatient (recurring) (ONCR) | payer BC, SELFPAY ==
--- NOTE | 2024-11-04 08:00 | PETR_ITS ---
PROCEDURE INFORMATION: Exam: PET/CT Skull Base to Mid-thigh Exam date and time: 11/04/2024 9:06 AM Age: 59 years old Clinical indication: Condition or disease; Primary cancer: Malignant neoplasm of right breast; Prior surgery; Surgery date: 6+ months; Surgery type: Full hysto, left femur; HX of right breast cancer jul 2024 LABS AND CLINICAL REPORTS: Glucose: 102 mg/dl Treatment strategy for malignancy (PET staging): Restaging (PS) TECHNIQUE: Imaging protocol: Following at least four-hour fasting and following the injection of radiopharmaceutical, low dose CT images were obtained. Then, PET images were obtained. Attenuation corrected images were constructed using the CT scan. Fused images of PET and CT were reviewed. The standardized uptake values (SUV) reported below are maximum values within a region of interest, expressed in gm/ml. Exam includes orbital meatal line to mid-thigh. SUV normalization method: BodyWeight Radiopharmaceutical: 11.12 mCi F-18 FDG (Fluorodeoxyglucose), IV. Time of imaging post radiopharmaceutical administration: 56 minutes Injection site: left ac COMPARISON: PT PET WB melanoma INITIAL [id number] 03/01/2024 1:01 PM FINDINGS: Brain: Visualized brain has normal physiologic uptake. Pharynx: No abnormal uptake. Larynx: No abnormal uptake. Thyroid: New small area of focal hypermetabolic activity in the right thyroid with SUV max of 8.2. Lungs, pleura and trachea: No abnormal uptake. Heart: Normal physiologic uptake. Mediastinal space: No abnormal uptake. Liver: No abnormal uptake. Gallbladder and biliary ducts: No abnormal uptake. Pancreas: No abnormal uptake. Spleen: No abnormal uptake. Adrenal glands: No abnormal uptake. Kidneys and ureters: Normal physiologic uptake. Stomach and bowel: No abnormal uptake. Reproductive: Status post hysterectomy. Vasculature: No abnormal uptake. Lymph nodes: Hypermetabolic right supraclavicular, axillary, and internal mammary lymph nodes including reference 9 mm right internal mammary lymph node (series 202, image 94) with SUV max of 6.7, right supraclavicular lymph node measuring 9 mm in short axis (image 65) with SUV max of 6.8, and right axillary lymph node measuring 13 mm (image 101) with SUV max of 13.8. Skeleton: Status post ORIF of the left femur. Hardware is intact. Decreased hypermetabolic activity in the left femoral neck, now with a few scattered areas of periprosthetic increased uptake with SUV max of 5.1. No focal lesion identified. Soft tissues: Mildly asymmetric uptake in the medial left thigh musculature, likely physiologic. Hypermetabolic centrally necrotic right breast mass with SUV max of 11.3 measures 3.2 x 2.0 cm, previously 2.9 x 2.2 cm. METRICS: Mediastinal blood pool: SUV max = 2.6 Liver uptake: SUV max = 2.7 PET/PET skull to thigh SUBS [id number] IMPRESSION: 1. Grossly stable size of hypermetabolic right breast mass, compatible with primary malignancy. 2. Hypermetabolic right axillary, supraclavicular, and internal mammary lymph nodes, compatible with metastatic disease. 3. Status post ORIF of the left femur with a few scattered areas of periprosthetic metabolic activity, potentially stress related. No new lytic lesions identified. 4. New small area of focal hypermetabolic activity in the right thyroid. Recommend correlation with nonemergent thyroid ultrasound.
== END 2024-11-07 23:59 | disposition home or self-care (01) ==
LOC: ONCMED 08:02 → RAD 11-05 00:01 → ONCMED 11-07 09:15
PROVIDERS: PCP Family Medicine; Visit Provider Internal Medicine Medical Oncology
DX: Z53.9 Procedure and treatment not carried out, unspecified reason; C50.911 Malignant neoplasm of unspecified site of right female breast; C79.51 Secondary malignant neoplasm of bone; C77.8 Secondary and unspecified malignant neoplasm of lymph nodes of multiple regions; E07.9 Disorder of thyroid, unspecified; Z96.698 Presence of other orthopedic joint implants
CPT/HCPCS: 78815; A9552

== ENCOUNTER 2024-12-05 15:15 | Oncology outpatient (recurring) (ONCR) | payer BC, SELFPAY ==
[2024-12-05] MEDS: denosumab 120 mg SDV SUBCUT (15:36)
== END 2024-12-07 23:59 | disposition home or self-care (01) ==
PROVIDERS: PCP Family Medicine; Visit Provider Internal Medicine Medical Oncology
DX: C50.911 Malignant neoplasm of unspecified site of right female breast (principal); C79.51 Secondary malignant neoplasm of bone; Z79.899 Other long term (current) drug therapy
CPT/HCPCS: 96372; J0897

== ENCOUNTER 2025-01-23 07:45 | Oncology outpatient (recurring) (ONCR) | payer BC, SELFPAY ==
[2025-01-16 09:05] VITALS: BP 128/82; PULSE 87; RESP 16; TEMP 36.7; O2SAT 98
[2025-01-16 09:31] LABS: Basophils # 0.1 10^3/uL (0.0-0.1); Basophils % 1.1 %; Eosinophils # 0.2 10^3/uL (0.0-0.8); Eosinophils % 2.3 %; Hematocrit 37.6 % (36-47); Lymphocytes # 1.7 10^3/uL (0.8-4.8); Lymphocytes % 25.8 %; Mean Corpuscular HGB Conc 31.6 g/dL (30-55); Mean Corpuscular Volume 94.7 fl (85-98); Mean Platelet Volume 9.5 fL (7.4-10.4); Monocytes # 0.4 10^3/uL (0.2-0.9); Monocytes % 6.2 %; Neutrophils # 4.18 10^3/uL (1.8-7.7); Neutrophils % 64.3 %; Nucleated Red Blood Cells % 0 %; Platelet Count 271 10^3/cmm (157-399); Red Blood Count 3.97 10^6/uL (3.85-5.65); Red Cell Distribution Width 12.7 % (12.1-15.1)
[2025-01-16 09:47] LABS: Alanine Aminotransferase 15 U/L (0-33); Alkaline Phosphatase 60 U/L (35-105); Anion Gap 13.2 (5-19); Aspartate Amino Transferase 19 U/L (0-32); Blood Urea Nitrogen 11 mg/dL (6-20); Calcium 8.7 mg/dL (8.5-10.5); Carbon Dioxide 25 mmol/L (22-29); Chloride 103 mmol/L (98-107); Glomerular Filtration Rate 126.7 mL/min (90-130); Glucose 119 mg/dL (65-115); Osmolality Calculated 285 mOsm/kg (285-295); Potassium 4.2 mmol/L (3.5-5.1); Sodium 137 mmol/L (136-145); Total Bilirubin 0.5 mg/dL (0.15-1.2)
[2025-01-16] MEDS: denosumab 120 mg SDV SUBCUT (10:40)
--- NOTE | 2025-01-23 07:45 | USCV_ITS ---
Elissa Sr Age: 59 Gender: F : 1965 Exam Date: 01/23/2025 07:40 Ordering Phys: Fuad Gaspar MD Technologist: ROSALIA [place]am [place] [facility] [place]ication: High risk Breast CA meds BP: 128 / 82 HR: 68 Rhythm: Sinus Technical Quality: Adequate MEASUREMENTS (Male / Female) Normal Values 2D ECHO LV Diastolic Diameter PLAX 4.3 cm 4.2 - 5.9 / 3.9 - 5.3 cm IVS Diastolic Thickness 1.0 cm 0.6 - 1.0 / 0.6 - 0.9 cm IVS Systolic Thickness 1.7 cm LVPW Diastolic Thickness 1.3 cm 0.6 - 1.0 / 0.6 - 0.9 cm LVPW Systolic Thickness 1.6 cm LVOT Diameter 2.0 cm LV Ejection Fraction 2D Teich 67.3 % LV Ejection Fraction MOD 4C 65.2 % LV Ejection Fraction MOD 2C 56.6 % LV Ejection Fraction 2C AL 58.6 % LA Diameter 3.1 cm RA Systolic Volume 4C AL 24.3 ml RA Systolic Volume 4C MOD 22.6 ml LA Sys Volume AL 30.4 cm cubed LA Sys Volume Index AL 14.5 cm cubed/m squared Aorta at Sinotubular Diameter 2.9 cm IVC Diameter 2.1 cm M-MODE LA Ao Ratio MM 1.5 AV Cusp Separation MM 1.4 cm DOPPLER AV Peak Velocity 124.0 cm/s LVOT Peak Velocity 88.0 cm/s AV Area Cont Eq vti 2.6 cm squared AV Area Cont Eq pk 2.2 cm squared MV Peak Velocity 119.0 cm/s MV Area PHT 4.9 cm squared Mitral E to A Ratio 1.0 TR Peak Velocity 95.0 cm/s TR Peak Gradient 3.6 mmHg TV Peak E Velocity 72.0 cm/s PV Peak Velocity 95.0 cm/s FINDINGS Left Ventricle Left ventricle is normal in size. LV systolic function is normal with EF of 55 to 60%. No regional wall motion abnormality seen. Right Ventricle Normal in size and function Right Atrium Normal in size Left Atrium Normal in size Mitral Valve Structurally normal mitral valve. Mild mitral regurgitation. Aortic Valve Structurally normal aortic valve. No significant stenosis or regurgitation. Tricuspid Valve Mild tricuspid regurgitation. Insufficient TR jet to evaluate RVSP. Pulmonic Valve Not well visualized Pericardium Normal Aorta Normal in size IVC Not well visualized CONCLUSIONS LV systolic function is normal with EF of 55-60%. Mild mitral regurgitation. Mild tricuspid regurgitation. No comparison studies are available Mickey Gimenez MD (Electronically Signed) Final Date: 05 February 2025 14:22 S
== END 2025-02-06 23:59 | disposition home or self-care (01) ==
LOC: RAD 01-24 00:01 → ONCMED 01-24 09:22
PROVIDERS: PCP Family Medicine; Visit Provider Internal Medicine Medical Oncology
DX: Z53.9 Procedure and treatment not carried out, unspecified reason
CPT/HCPCS: 36415; 80053; 85025; 93306; 96401; J0897

== ENCOUNTER 2025-03-09 09:00 | Oncology outpatient (recurring) (ONCR) | payer BC, SELFPAY ==
[2025-03-01 07:45] LABS: Hematocrit 40.7 % (36-47); Hemoglobin 13.00 g/dL (11.27-16.99); Mean Corpuscular HGB Conc 31.9 g/dL (30-55); Mean Corpuscular Hemoglobin 28.4 pg (27-33); Mean Corpuscular Volume 88.9 fl (85-98); Nucleated Red Blood Cells % 0 %; Platelet Count 290 10^3/cmm (157-399); Red Blood Count 4.58 10^6/uL (3.85-5.65); White Blood Count 19.05 10^3/uL (3.29-11.43)
[2025-03-01 08:05] LABS: Alanine Aminotransferase 18 U/L (0-33); Albumin Level 4.2 g/dL (3.5-5.2); Alkaline Phosphatase 55 U/L (35-105); Anion Gap 17.3 (5-19); Aspartate Amino Transferase 14 U/L (0-32); Blood Urea Nitrogen 9 mg/dL (6-20); Calcium 9.1 mg/dL (8.5-10.5); Carbon Dioxide 25 mmol/L (22-29); Chloride 103 mmol/L (98-107); Creatinine Clr Calc Pharmacy 141.2634; Globulin 2.7 g/dL (1.3-4.6); Glucose 119 mg/dL (65-115); Osmolality Calculated 292 mOsm/kg (285-295); Potassium 4.3 mmol/L (3.5-5.1); Sodium 141 mmol/L (136-145); Total Protein 6.9 g/dL (6.6-8.7)
[2025-03-01] MEDS: denosumab 120 mg SDV SUBCUT (09:58)
[2025-03-01] MEDS: diphenhydrAMINE 50 mg/mL SDV 1mL 25 MG IVP (10:07)
[2025-03-01] MEDS: DOCEtaxeL 154 MG in sodium chloride 0.9%(non-DEHP) 250 ML 265.4 MG IV (11:14)
[2025-03-01 12:05] LABS: Magnesium 2.3 mg/dL (1.7-2.3)
[2025-03-01] MEDS: pertuzumab-trastuzumab-hy-zzxf (80 mg-40 mg-2,000 units/ml) 15mL 1200 MG SUBCUT (12:34)
[2025-03-01 14:30] VITALS: BP 117/66; PULSE 66; RESP 16; TEMP 36.5; O2SAT 98
[2025-03-08 09:52] LABS: Hematocrit 44.2 % (36-47); Hemoglobin 14.40 g/dL (11.27-16.99); Mean Corpuscular HGB Conc 32.6 g/dL (30-55); Mean Corpuscular Hemoglobin 27.7 pg (27-33); Mean Corpuscular Volume 85.2 fl (85-98); Nucleated Red Blood Cells % 0 %; Platelet Count 198 10^3/cmm (157-399); Red Blood Count 5.19 10^6/uL (3.85-5.65); White Blood Count 1.11 10^3/uL (3.29-11.43)
[2025-03-08 10:15] LABS: Alanine Aminotransferase 35 U/L (0-33); Albumin Level 4.2 g/dL (3.5-5.2); Alkaline Phosphatase 50 U/L (35-105); Anion Gap 16.6 (5-19); Aspartate Amino Transferase 15 U/L (0-32); Blood Urea Nitrogen 11 mg/dL (6-20); Calcium 8.8 mg/dL (8.5-10.5); Carbon Dioxide 26 mmol/L (22-29); Chloride 101 mmol/L (98-107); Creatinine Clr Calc Pharmacy 141.2634; Globulin 2.7 g/dL (1.3-4.6); Glucose 109 mg/dL (65-115); Osmolality Calculated 288 mOsm/kg (285-295); Potassium 4.6 mmol/L (3.5-5.1); Sodium 139 mmol/L (136-145); Total Protein 6.9 g/dL (6.6-8.7)
--- NOTE | 2025-03-08 13:00 | CT_ITS ---
WS: [id number] CTA NECK TECHNIQUE: Contrast enhanced CTA of the neck with coronal and sagittal reformatted images and maximum intensity projection (MIP) images. NASCET criteria utilized. CLINICAL INFORMATION: left side neck pain/edema/warm/erythema COMPARISON: PET/CT 11/04/2024 DLP: 228.[address] scans at [facility] use at least one of these dose optimization techniques: automated exposure control; mA and/or kV adjustment per patient size (includes targeted exams where dose is matched to clinical indication); or iterative reconstruction. FINDINGS: RIGHT: RIGHT common carotid artery is patent. No significant RIGHT ICA stenosis. RIGHT ICA is patent to the skull base. LEFT: LEFT common carotid artery is patent. No significant LEFT ICA stenosis. LEFT ICA is patent to the skull base. Codominant and patent vertebral arteries bilaterally. Vertebral arteries are patent to the basilar junction. Lung apices are well aerated. Proximal subclavian arteries are patent. Moderate central canal stenosis C4-C6 with disc osteophyte protrusions. Paranasal sinuses are well aerated. Mastoid air cells are well aerated. Normal parapharyngeal fat. Parotid glands are normal. Normal submandibular glands. No evidence of neck abscess or fluid collection. No definite visualized jugular vein thrombus but ultrasound would be more sensitive for evaluation. RIGHT dominant jugular vein in the neck. Enlarged heterogeneous RIGHT supraclavicular lymph nodes. This measures approximately 2.1 x 1.3 cm and appears progressed since the prior PET/CT. Numerous small low-attenuation and enhancing thyroid nodules. CT/CT angio neck [id number] IMPRESSION: 1. No evidence of neck abscess or drainable fluid collection. 2. RIGHT jugular vein appears grossly patent. Smaller LEFT jugular vein appear s grossly patent. This study is not protocoled for venous evaluation. Recommend ultrasound venous upper extremity for more specific venous evaluation 3. Both ICAs are patent to the skull base. No significant stenosis. 4. Enlarged heterogeneous RIGHT supraclavicular lymph node compatible with met astatic disease. This measures 2.1 x 1.3 cm and appears progressed in size sinc e the prior PET/CT. This was FDG-avid on the prior PET/CT. 5. Moderate central canal stenosis in the mid cervical spine at C4-C6 with dis c osteophyte protrusions and indentation of the cervical cord. Recommend cervic al spine MRI.
[2025-03-08] MEDS: iohexol 350 mg/mL 500 mL Btl (per mL) IV (13:25)
[2025-03-08 14:04] VITALS: RESP 16; O2SAT 95
[2025-03-08] MEDS: oxyCODONE 5 mg IR Tab/Cap PO (14:04)
[2025-03-08] MEDS: diphenhydrAMINE 50 mg/mL SDV 1mL 25 MG IVP (14:13)
[2025-03-08 16:03] VITALS: BP 132/82; PULSE 87; RESP 16; TEMP 36.4; O2SAT 97
[2025-03-09 09:20] VITALS: BP 121/86; PULSE 108; RESP 16; TEMP 36.4; O2SAT 96
== END 2025-03-09 23:59 | disposition home or self-care (01) ==
PROVIDERS: Nurse Practitioner Family; PCP Family Medicine; Visit Provider Internal Medicine
DX: Z53.9 Procedure and treatment not carried out, unspecified reason; C79.51 Secondary malignant neoplasm of bone; C50.911 Malignant neoplasm of unspecified site of right female breast; Z79.899 Other long term (current) drug therapy
CPT/HCPCS: 36591; 70498; 80053; 83735; 85025; 96361; 96367; 96372; 96374; 96375; 96377; 96402; 96413; 96417; J0897; J1100; J1200; J1453; J2469; J3490; J7030; J7040; J7050; J9045; J9171; J9316; J9999; Q5101

== ENCOUNTER 2025-03-30 09:05 | Oncology outpatient (recurring) (ONCR) | payer BC, SELFPAY ==
[2025-03-30] MEDS: denosumab 120 mg SDV SUBCUT (09:36)
== END 2025-04-09 23:59 | disposition home or self-care (01) ==
PROVIDERS: PCP Family Medicine; Visit Provider Internal Medicine
DX: Z53.9 Procedure and treatment not carried out, unspecified reason; C79.51 Secondary malignant neoplasm of bone; C50.911 Malignant neoplasm of unspecified site of right female breast; Z79.899 Other long term (current) drug therapy
CPT/HCPCS: 96372; 96523; J0897; Q5101

== ENCOUNTER 2025-04-27 10:27 | Oncology outpatient (recurring) (ONCR) | payer BC, SELFPAY ==
[2025-04-27 11:16] VITALS: BP 132/70; PULSE 90; RESP 16; TEMP 36.6; O2SAT 99
[2025-04-27] MEDS: denosumab 120 mg SDV (Infusion Clinic Only) SUBCUT (11:41)
== END 2025-05-09 23:59 | disposition home or self-care (01) ==
PROVIDERS: PCP Family Medicine; Visit Provider Internal Medicine
DX: Z53.9 Procedure and treatment not carried out, unspecified reason; Z45.2 Encounter for adjustment and management of vascular access device; C79.51 Secondary malignant neoplasm of bone; Z79.899 Other long term (current) drug therapy; Z95.828 Presence of other vascular implants and grafts
CPT/HCPCS: 96401; 96523; J0897